=== PATIENT | female | born 1940 | race Caucasian/White ===

== ENCOUNTER 2023-05-11 05:01 | Observation (INO) ==
--- NOTE | 2023-04-12 15:54 | PAT Medication Instructions ---
Medication Instructions Date of Service April 12, 2023 Home Medications aspirin 81 mg capsule 81 mg PO Q2D biotin 5,000 mcg disintegrating tablet 5,000 mcg PO QAM calcium carbonate 500 mg-vitamin D3 3.125 mcg (125 unit) tablet 1 tab PO BID cholecalciferol (vitamin D3) 50 mcg (2,000 unit) capsule (Vitamin D3) 50 mcg PO QAM losartan 50 mg tablet 50 mg PO QPM omega-3 fatty acids 1,000 mg PO QAM Continue as directed aspirin 81 mg capsule 81 mg PO Q2D (continue as normal unless told otherwise by surgeon) STOP taking 2 weeks before surgery (or as soon as possible if surgery is within 2 weeks) biotin 5,000 mcg disintegrating tablet 5,000 mcg PO QAM omega-3 fatty acids 1,000 mg PO QAM DO NOT take the morning of surgery calcium carbonate 500 mg-vitamin D3 3.125 mcg (125 unit) tablet 1 tab PO BID cholecalciferol (vitamin D3) 50 mcg (2,000 unit) capsule (Vitamin D3) 50 mcg PO QAM Take evening before surgery calcium carbonate 500 mg-vitamin D3 3.125 mcg (125 unit) tablet 1 tab PO BID losartan 50 mg tablet 50 mg PO QPM Other Notes If you have any questions please call us at [phone] or [phone] or [phone] or [phone]
--- NOTE | 2023-04-13 14:31 | Anesthesiology Consultation ---
Date of Service April 13, 2023 Assessment & Plan (1) Encounter for pre-operative examination: - Infectious disease screening: Per assessment on 04/13: No known infectious disease contacts or current infectious disease symptoms. No noted Covid positive test result in past 90 days. - Outpatient joint assessment: Pt currently scheduled for inpatient pathway. If surgeon requests review for outpatient joint pathway, patient is not recommended candidate for outpatient joint program from anesthesia standpoint. - Anesthesia concern: Patient worried about postop memory impairment given her age- wants to limit use of medications known to have increased risk of memory impairment if/when possible. - Patient having routine labs done by PCP 04/14 (patient was not fasting at PAT visit 04/13 so she kept appt to have PCP labs the next day). Awaiting PCP labs to be done 04/14 (Dr. Hope). Chart Review Chart Review: Patient seen in Pre Admission Testing Teaching & Discussion Pre-Anesthesia Teaching/Discussion Notes: Instructed NPO after midnight before surgery,except medications with 15 cc of water. Medication instructions provided according to the [facility] guidelines. p History Surgery Operation Date: 05/11/23 12:30 Proposed Procedures p Right Total Hip Arthroplasty - Jaren Smiley MD Height/Weight Height: 5 ft 2 in Weight: 85 kg Allergies Allergy/AdvReac Type Severity Reaction Status Date / Time tetracycline AdvReac Severe Intestinal Verified 04/13/23 08:42 bleeding Medications Home Medications Medication Instructions Recorded Confirmed Last Taken aspirin 81 mg capsule 81 mg PO Q2D 10/20/21 04/12/23 11/10/21 biotin 5,000 mcg disintegrating 5,000 mcg PO QAM 10/20/21 04/12/23 11/10/21 tablet calcium carbonate 500 mg-vitamin 1 tab PO BID 10/20/21 04/12/23 11/10/21 D3 3.125 mcg (125 unit) tablet cholecalciferol (vitamin D3) 50 50 mcg PO QAM 10/20/21 04/12/23 11/10/21 mcg (2,000 unit) capsule (Vitamin D3) losartan 50 mg tablet 25 mg PO BID 10/20/21 04/13/23 11/10/21 omega-3 fatty acids 1,000 mg PO QAM 10/20/21 04/12/23 11/10/21 amlodipine 2.5 mg tablet 2.5 mg PO DAILY 04/13/23 04/13/23 Unknown Past Medical History Medical History Arthralgia of right hip Arthritis Bursitis Hips Dry eye syndrome History of COVID-19 2021, "mild" History of kidney stones No surgical interventions History of shingles Remote hx Hx of paranoid disorder Hx of thyroid disease No longer on meds Hypertension Exercise / Class Metabolic Activity III < 4 Walking/Shop/Light housework Past Family History Family History Son Family history of diabetes mellitus Other No family history of adverse response to anesthesia Past Surgical History Surgical History H/O ovarian cystectomy History of cataract surgery R/L History of colonoscopy History of hysterectomy [place] teeth removed Past Anesthesia History No Hx of Anesthesia Complications and No Family Hx of Anesthesia Complications History of PONV No Hx of PONV and Hx of Motion Sickness (Occasional) Social History Smoking Status: Never smoker Do You Dip or Chew Tobacco: No Hx Alcohol Use: Yes alcohol intake frequency: holidays/special occasions only Hx Substance Use: No substance use type: does not use Review of Systems Patient denies chest pain, shortness of breath, fever, chills, cough, wheezing, palpitations. Physical Exam Vital Signs VITALS BP 115/70 P 65 TEMP 99.0 SP02 95%RA RESP 16 PHYSICAL Full cervical extension range of motion. Full TMJ range of motion. TMD 3 finger breaths Mallampati Score 2 Dentition: upper front chipped (hx repairs) Lungs: clear throughout to auscultation Cardiac: regular rate and rhythm, no murmurs noted Spine: normal Carotid arteries: negative bruit Extremities: no LE edema Lab Results Anesthesia Preop Results Results Anesthesia Widget: WBC 9.21 K/ul (4.8-10.8) 04/13/23 Hgb 14.0 g/dl (12.0-16.0) 04/13/23 Hct 41.9 % (37.0-47.0) 04/13/23 Plt 396 K/uL (130-400) 04/13/23 PT 10.8 Seconds (9.0-12.0) 04/13/23 PTT 29.0 Seconds (21.0-31.0) 04/13/23 INR 1.0 (0.9-1.1) 04/13/23 Blood Type O Positive 04/13/23 Antibody Screen NEGATIVE 04/13/23 Testing Electrocardiogram Date: 04/13/23 NSR at 66bpm. LAD. LVH with repolarization abnormality. Chest X-Ray Date: 11/11/22 FINDINGS: The cardiac silhouette is borderline enlarged. Calcified granulomas again noted within the left lower lobe and right midlung zone. No new focal lung consolidations to suggest a pneumonia. No evidence for pulmonary edema. There are calcified AP window lymph nodes again noted. No pneumothorax. No pleural effusions. IMPRESSION: Borderline cardiomegaly. Otherwise, no acute process within the chest.
[2023-05-11 05:53] LABS: Hematocrit (blood only) 45.5 % (37.0-47.0); Hemoglobin 15.2 g/dl (12.0-16.0); Mean Corpuscular Hgb Conc 33.4 g/dL (32.0-36.0); Mean Corpuscular Volume 92.7 fL (80.0-100.0); Platelet Count 399 K/uL (130-400); RDW Coefficient of Variation 13.4 % (11.5-14.5); RDW Standard Deviation 45.6 fL (36.4-46.3); Red Blood Count 4.91 M/uL (4.20-5.40); White Blood Count 11.09 K/ul (4.8-10.8)
[2023-05-11] MEDS ORDERED: ceFAZolin 2000MG 2,000 MG/15 ML SYR IV SCH (06:00)
[2023-05-11] MEDS ORDERED: METOCLOPRAMIDE HCL 10 MG TABLET PO SCH (06:00)
[2023-05-11] MEDS ORDERED: CeleBREX 200 MG CAP PO SCH (06:00)
[2023-05-11] MEDS ORDERED: LR 500ML BOLUS, THEN 15ML/HR IV SCH (06:00)
[2023-05-11] MEDS ORDERED: dexAMETHasone**PF** 10 MG/ML VIAL IV SCH (06:00)
[2023-05-11] MEDS ORDERED: FAMOTIDINE 20 MG TAB PO SCH (06:00)
[2023-05-11] MEDS ORDERED: LR 60ML/HR IV SCH (06:00)
[2023-05-11] MEDS ORDERED: TRANEXAMIC ACID 1,000 MG **IV Pre-op IV SCH (06:00)
[2023-05-11] MEDS ORDERED: ACETAMINOPHEN 500 MG TAB PO SCH (06:00)
[2023-05-11] MEDS ORDERED: BUPIVACAINE 0.5 % 5 MG/1 ML PF 10ML VIAL ONE (06:20)
[2023-05-11] MEDS ORDERED: BUPIVACAINE/EPINEPHRINE 0.5% MPF 1:200,000 30 ML VIAL ONE (06:35)
[2023-05-11] MEDS ORDERED: MIDAZOLAM HCL 1 MG/ML 2ML VIAL ONE (06:42)
--- NOTE | 2023-05-11 06:52 | History & Physical Bridge Note ---
Date of Service May 11, 2023 History & Physical Bridge Note I have examined the patient, reviewed the History & Physical and in the interval since the performance of the History & Physical I have noted the following changes of clinical significance: no changes noted
[2023-05-11] MEDS ORDERED: ONDANSETRON INJ 2 MG/ML 2 ML VIAL IV PRN ×2 (07:06→11:48)
[2023-05-11] MEDS ORDERED: ATROPINE SULFATE 0.1 MG/ML 10ML SYR IV PRN (07:06)
[2023-05-11] MEDS ORDERED: ePHEDrine sulfate 50 MG/ML AMP IV PRN (07:06)
[2023-05-11] MEDS ORDERED: PROPOFOL IV EMULSION 10 MG/ML 20 ML VIAL IV ONE ×3 (07:23→08:29)
[2023-05-11] MEDS ORDERED: PHENYLEPHRINE 100MCG/ML 5ML SYR ONE (07:27)
[2023-05-11] MEDS ORDERED: ePHEDrine sulfate 50 MG/5 ML SYR ONE (07:27)
--- NOTE | 2023-05-11 09:16 | Operative Report ---
PG Post Operative Report Pre & Post Diagnosis Operation Date: 05/11/23 07:00 Pre-Op Diagnosis: Right Hip Degenerative Joint Disease Post-Op Diagnosis: #1 right Hip Degenerative Joint Disease #2 Right chronic hip abductor avulsion I identified the patient and participated in the time-out.: Yes Procedure Operation Date: 05/11/23 07:00 Actual Procedures p Right Total Hip Arthroplasty, Cemented(Right) with right hip abductor repair- Jaren Smiley MD Surgeon Jaren Smiley MD Crab Fisherman Javon Bynum PA-C Estimated Blood Loss 150 Findings Consistent with Post-Op Diagnosis Operative findings show advanced right hip DJD. She had grade 4 [id number] disease of the femoral head and acetabulum. She had chronic hip abductor avulsion. Moderate-sized joint effusion. Specimens Right femoral head sent for pathology Anesthesia Type Spinal MAC Complications none Disposition Accompanied Patient To Recovery: No Indications Patient is an 83-year-old female who said about a year history of a markedly increasing right hip pain discomfort. She failed conservative measures. She has trouble getting around. X-rays show progressive hip arthritis. She like proceed with surgical management. Description of Procedure Operative implants consist of: 1 Biomet G7 size 50 mm acetabular shell. 2. [place] eliminator. 3. 6.5 cancellous acetabular screws 1 at 35 mm length 1 to 20 mm length. 4. Highly cross-linked polyethylene liner with a 50 mm outer diameter and 36 mm inner diameter. 5. DePuy [place] cemented size 3 high offset femoral stem. 6. +5/36 mm ceramic articular ball. 7. Biomet juggernaut suture anchor. The patient was taken the operating, identified, placed on the operating table supine position architectures were properly padded. IV antibiotics were provided by the anesthesia team. A spinal anesthetic had been implemented holding area. Paz cath was placed in sterile fashion. The patient then placed in the left lateral decubitus position. An axillary roll was placed. Stulberg hip positioner was used for positioning. The right hip and leg were then prepped and draped in usual sterile fashion. A posterolateral approach to the right hip was then performed to a curvilinear incision centered over the greater trochanter. Sharp dissection carried through subcutaneous tissue down to the IT band gluteal fascia. The IT band gluteal fascia incised longitudinally in line with skin incision. The underlying greater bursa was excised. The greater trochanter was essentially bald superiorly and posteriorly and for the majority anteriorly. The piriformis and external rotators were tagged and taken off the posterior aspect of the hip of the joint along with the joint capsule as a single layer. Hip was internally rotated and dislocated. Femoral neck osteotomy cut was made with Final Cut 12 mm above the lesser trochanter. Femoral head was removed and sent for pathology. The femur was retracted anteriorly. Attention drawn the acetabulum. The acetabular labrum was excised. I then reamed beginning with size 43 and progressing up to a 49. I reamed a little bit with a 50 reamer and then placed a 50 mm Biomet G7 acetabular shell in about 40 degrees lateral opening and 20 degrees of anteversion. It was fixed with two 6.5 cancellous screws. Some small osteophytes removed anteriorly and inferiorly. Trial liner was placed. Attention drawn the femur. The proximal femur was entered with cookie-cutter followed by canal finder and lateralizing reamer. I then broached beginning with size 1 and progressing to a 2. Even this too was fairly tight. We elected to stop there. I trialed the hip and the +5 articular ball with a high offset stem was fit appropriately. I did want to maximize her stability considering her Hip abductor deficiency. We elect to place a size 3 high offset implant. I do not feel like to broach any further. All trial implants were removed. An apex hole limiter was placed. Highly cross-linked polyethylene liner was placed. A double batch [place] G cement was mixed. A cement restrictor was placed at the base of the canal about 14 cm down. The canal was injected with the cement and a size 3 high offset DePuy [place] femoral stem was placed. Once the cement hardened the final cement check was then performed. A +5/36 mm ceramic articular ball was placed. Hip was located once again found to be stable. Attention drawn toward closing. The wound was irrigated coconuts pulsatile lavage solution. I did inject locally with 60 cc of half percent Marcaine with epinephrine. The posterior capsule and external rotators were repaired through drill holes as a single layer with #2 Tycron suture. I then scuffed up the greater trochanter. I placed a single juggernaut anchor in the mid to anterior portion of the trochanter. I then fed the 2 sutures through the remaining hip abductors which were avulsed primarily superiorly and anteriorly. I placed 1 set of sutures an terior one superior. These were tied down the trochanter. The IT band gluteal fascia then closed in 1 PDS suture in a running fashion for subcutaneous tissues then closed with 2 layers the deep layer #2 Vicryl suture and subcutaneous tissue with 2-0 Dexon suture in buried interrupted fashion. Skin was closed skin luis. Leg was then cleaned and dried. A Prevena VAC dressing was applied due to the very thick soft tissue envelope. The patient was then transferred to the recovery room in stable condition. Patient tolerated procedure well and there are no complications. Javon Bynum, my physician certified ophthalmic surgical assistant, was present for the entire procedure. His assistance was essential and required for appropriate patient positioning, prepping and draping, surgical exposure, performing the technical details of the operation, placement the implants, closure of the wound, and placement of the sterile bandage. I attest to the content of the Intraoperative Record and any orders documented therein. Any exceptions are noted below.
[2023-05-11] MEDS: fentaNYL citrate PF 100 MCG/2 ML VIAL IV PRN ×2 (09:48→09:55)
--- NOTE | 2023-05-11 09:52 | XRay Report ---
AP PELVIS, CROSSTABLE LATERAL RIGHT HIP History: Right total hip arthroplasty. Degenerative arthritis. Postop. FINDINGS: The patient is status post a right total hip arthroplasty. The hardware is intact. No fract ure or dislocation. Skin luis are in place. IMPRESSION: Right total hip arthroplasty. No evidence for hardware complication ACT 112: Negative or not required by law. Electronically signed by: Kyle Berg M.D. 05/11/2023 9:50 AM
--- NOTE | 2023-05-11 11:03 | Anesthesiology Progress Note ---
Date of Service May 11, 2023 Anesthesia Post Procedure Vital Signs Vital Signs: Temp Pulse Pulse Resp BP Pulse Ox O2 Del Method 05/11/23 10:55 60 15 115/58 L 98 Nasal Cannula 05/11/23 10:40 64 15 112/50 L 97 Nasal Cannula 05/11/23 10:25 62 17 111/55 L 95 Nasal Cannula 05/11/23 10:10 60 15 112/58 L 95 Nasal Cannula 05/11/23 09:55 65 12 105/70 92 Nasal Cannula 05/11/23 09:45 60 19 107/47 L 94 Room Air 05/11/23 09:35 36.1 C L 66 18 105/53 L 94 Room Air 05/11/23 09:25 70 20 101/49 L 94 Oxymask 05/11/23 09:15 72 22 106/52 L 93 Oxymask 05/11/23 09:07 36.0 C L 71 14 88/42 L 92 Oxymask 05/11/23 05:33 36.8 C 68 20 184/69 H 95 Room Air O2 Flow Rate 05/11/23 10:55 2 05/11/23 10:40 2 05/11/23 10:25 2 05/11/23 10:10 2 05/11/23 09:55 2 05/11/23 09:45 05/11/23 09:35 05/11/23 09:25 4 05/11/23 09:15 9 05/11/23 09:07 9 05/11/23 05:33 Pain Intensity Right Hip: Pain Intensity: 4 Transfer of Care Handoff Completed per policy Notes Mental Status: alert / awake / arousable and participated in evaluation Nausea / Vomiting: adequately controlled Pain: adequately controlled Airway Patency, RR, SpO2: stable & adequate BP & HR: stable & adequate Hydration State: stable & adequate Neuraxial Anesthesia: was administered and sensory block is resolving Anesthetic Complications: no major complications apparent and Pt Satisfied with anesthetic care
[2023-05-11] MEDS ORDERED: HYDROmorphone INJ 0.5 MG/0.5 ML SYR IV PRN (11:48)
[2023-05-11] MEDS ORDERED: bisacodyL 10 MG SUPP PR PRN (11:48)
[2023-05-11] MEDS ORDERED: MAGNESIUM HYDROXIDE SUSP 30 ML UDC PO PRN (11:48)
[2023-05-11] MEDS ORDERED: NALOXONE HCL 0.4 MG/1 ML VIAL/CARP IV PRN (11:48)
[2023-05-11] MEDS ORDERED: METOCLOPRAMIDE HCL INJ 5 MG/ML 2 ML VIAL IV PRN (11:48)
[2023-05-11] MEDS ORDERED: ALUMINUM/MAGNESIUM SUSP 30 ML UDC PO PRN (11:48)
[2023-05-11] MEDS ORDERED: traMADol HCL 50 MG TABLET PO PRN (11:48)
[2023-05-11] MEDS: SODIUM CHLORIDE 0.9% 1,000 ML IV SCH ×2 (12:13→22:33)
[2023-05-11] MEDS: KETOROLAC TROMETHAMINE 15 MG/ML VIAL IV SCH ×3 (12:38→23:10)
[2023-05-11] MEDS: ACETAMINOPHEN 500 MG TAB PO SCH ×2 (13:34→20:50)
[2023-05-11] MEDS: ceFAZolin 2000MG 2,000 MG/15 ML SYR IV SCH ×2 (14:59→23:09)
[2023-05-11] MEDS ORDERED: TRANEXAMIC ACID / 0.7% NACL 1,000 MG/100 ML BAG IV SCH (15:15)
[2023-05-11] MEDS: ASCORBIC ACID 500 MG TAB PO SCH (17:25)
[2023-05-11] MEDS: ASPIRIN 81 MG ECTAB PO SCH (20:51)
[2023-05-11] MEDS: CALCIUM 600MG + VIT D 400 IU TAB PO SCH (20:51)
[2023-05-11] MEDS: DOCUSATE SODIUM 100 MG CAP PO SCH (20:51)
[2023-05-11] MEDS: LOSARTAN POTASSIUM 25 MG TAB PO SCH (20:52)
[2023-05-11] MEDS ORDERED: SENNA 8.6 MG TAB PO SCH ×2 (21:00)
[2023-05-12] MEDS: KETOROLAC TROMETHAMINE 15 MG/ML VIAL IV SCH ×2 (06:10→11:42)
[2023-05-12] MEDS ORDERED: dexAMETHasone 4 MG TAB PO SCH (08:00)
[2023-05-12] MEDS: ASCORBIC ACID 500 MG TAB PO SCH (08:07)
[2023-05-12] MEDS: CALCIUM 600MG + VIT D 400 IU TAB PO SCH (08:07)
[2023-05-12] MEDS: LOSARTAN POTASSIUM 25 MG TAB PO SCH (08:08)
[2023-05-12] MEDS: ACETAMINOPHEN 500 MG TAB PO SCH (08:09)
[2023-05-12] MEDS: DOCUSATE SODIUM 100 MG CAP PO SCH (08:09)
[2023-05-12] MEDS: ASPIRIN 81 MG ECTAB PO SCH (08:09)
[2023-05-12 08:12] LABS: Basophils # (auto) 0.02 K/uL (0.00-0.20); Basophils % (auto) 0.1 %; Hematocrit (blood only) 35.7 % (37.0-47.0); Hemoglobin 12.1 g/dl (12.0-16.0); Immature Granulocytes # (auto) 0.08 K/uL (0.01-0.20); Immature Granulocytes % (auto) 0.5 %; Lymphocytes # (auto) 1.36 K/uL (1.20-3.40); Lymphocytes % (auto) 8.3 %; Mean Corpuscular Hemoglobin 30.6 pg (25.0-34.0); Mean Corpuscular Hgb Conc 33.9 g/dL (32.0-36.0); Mean Corpuscular Volume 90.4 fL (80.0-100.0); Mean Platelet Volume 10.5 fL (9.4-12.4); Monocytes # (auto) 0.87 K/uL (0.11-0.59); Monocytes % (auto) 5.3 %; Neutrophils # (auto) 14.04 K/uL (1.40-6.50); Neutrophils % (auto) 85.8 %; Platelet Count 336 K/uL (130-400); RDW Coefficient of Variation 13.4 % (11.5-14.5); RDW Standard Deviation 44.3 fL (36.4-46.3); Red Blood Count 3.95 M/uL (4.20-5.40); White Blood Count 16.37 K/ul (4.8-10.8)
[2023-05-12 08:17] LABS: BUN Creatinine Ratio 26.2 (10-20); Calcium 8.9 mg/dl (8.6-10.3); Creatinine Clr Calc Pharmacy 65.9 ml/min; Est GFR (African American) 95.2 ml/min; Est GFR (Non-African American) 82.1 ml/min; Potassium 4.5 mmol/L (3.5-5.1)
[2023-05-12] MEDS ORDERED: OMEGA-3 (PURIFIED FISH OIL) 1 GM CAP PO SCH (09:00)
[2023-05-12] MEDS ORDERED: NON-FORMULARY MEDICATION (Biotin 5,000 mcg Tablet,Disintegrating) PO SCH (09:00)
[2023-05-12] MEDS ORDERED: amLODIPine BESYLATE 5 MG TAB PO SCH (09:00)
[2023-05-12] MEDS ORDERED: MULTIVITAMIN TAB PO SCH (09:00)
[2023-05-12] MEDS ORDERED: CHOLECALCIFEROL 1,000 UNITS 25 MCG TAB PO SCH (09:00)
--- NOTE | 2023-05-12 13:08 | Surgery Progress Note ---
Date of Service May 12, 2023 Assessment & Plan (1) Status post right hip replacement: Plan: 83-year-old female postop day 1 from a hybrid total hip replacement doing quite well. Pain is controlled. She is neurologically intact. Hips located. Therapy went well. Plan: 1 DVT prophylaxis including thigh-high teds, SCDs, aspirin twice a day. 2. PT OT. Weight-bear as tolerated. Right total hip protocol. 3. Pain control doing okay with current pain regimen. Not really having much pain. 4. Disposition plan to discharge home with some home health and her family's assistance. Admission and Anticipated Discharge Date Admission Date: May 11, 2023 Subjective 83-year-old female postop day 1 from a right hybrid total hip replacement. She is doing quite well. Pain is controlled. Therapy went well. She is hoping to go home. Physical Exam Physical Exam: Physical exam shows a pleasant elderly female. She is sitting up in her bedside chair and talking to family. She looks quite comfortable. Examination of the right hip reveals a Prevena VAC dressing to be in place. Her thigh is soft and supple. Leg lengths are equal. She is neurologically intact. Results & Data Vital Signs (Past 12 Hours) Vital Signs Temp Pulse Resp BP Pulse Ox O2 Del Method 05/12/23 08:34 36.5 C 62 18 120/61 97 Room Air 05/12/23 03:46 36.4 C L 52 L 16 126/60 94 Room Air Laboratory Results Hemoglobin is 12.1. Hematocrit is 35.7. Electrolytes are stable. PG Care Time/CCT Total # of Minutes Spent Total Time Spent with Patient: Total time spent is greater than 50% in coordination of care (as documented) at patient's floor/unit and/or counseling patient: Coding Level of Care Code 53127 Post Operative Follow-Up Diagnoses Status post right hip replacement Z96.641
--- NOTE | 2023-05-16 14:26 | Discharge Summary ---
Date of Service May 16, 2023 Discharge Data Procedures Performed Operation Date: 05/11/23 07:00 Actual Procedures p Right Total Hip Arthroplasty, Cemented(Right) - Jaren Smiley MD Hospital Course (1) Status post right hip replacement: This is a 83 year old patient admitted on 05/11/23 and underwent total hip arthroplasty. She tolerated the procedure well and there were no complications. Transferred to the PACU post op and later to the orthopedic floor for further care. She was given ancef for antibiotic prophylaxis. She was also given JM stockings, SCDs, and aspirin for DVT prophylaxis. Hemoglobin, hematocrit, and vital signs were monitored during her hospital stay and remained stable. Did not require any blood transfusions. There were no complications during her hospital stay. By post op day #1 the patient was tolerating a regular diet, pain was reasonably controlled with oral pain medicine, and she was participating in physical therapy. On post op day #1 the patient was discharged home and set up with home health care. She was given printed discharge instructions including prescriptions for extra strength tylenol, aspirin, ketorolac, zofran, senokot, and tramadol. Continue hip precautions. Continue physical therapy, weight bearing as tolerated. Continue JM stockings. Follow up approximately 2 weeks post op or sooner if there are problems or concerns. Coding Level of Care Code None Diagnoses Status post right hip replacement Z96.641
== END 2023-05-12 14:13 | disposition home health service (06) ==
LOC: 3W 05:01 → ASU 05:01

== ENCOUNTER 2024-10-20 13:15 | Inpatient (IN) ==
--- NOTE | 2024-10-20 22:41 | History & Physical Report ---
Date of Service October 20, 2024 Assessment & Plan (1) Plasma cell neoplasm: (2) Ambulatory dysfunction: (3) Essential hypertension: Plan Pt is an 84 yo female with a past med hx of HTN, peripheral vascular disease, osteopenia, carotid artery stenosis, hearing loss and depression who presents on 10/20 for direct admission from [facility] for further care of recent dx of plasmacytoma. #Plasmacytoma - transferred to [facility] 10/13-10/20 for eval of L leg bone lesion, biopsied and found to be plasma cell neoplasm - [facility] oncology recommend PET/CT and bone marrow biopsy for eval of multiple myeloma - pt transferred back to [place] as she lives locally and would like to continue her care here near family - oncology consulted - tylenol daron for pain with oxycodone prn #Ambulatory dysfunction - due to painful lytic lesion of L leg making it difficult to bear weight on that leg - PT/OT consulted #HTN - continue home olmesartan 5mg (or formulary equivalent) #Anxiety - hydroxyzine 25 mg prn (same as what she was getting in [place]) VTE: lovenox Admission and Anticipated Discharge Date Admission Date: October 20, 2024 History of Present Illness Chief Complaint: Plasmacytoma Primary Care Provider: James Hope Pt is an 84 yo female with a past med hx of HTN, peripheral vascular disease, osteopenia, carotid artery stenosis, hearing loss and depression who presents on 10/20 for direct admission from [facility] for further care of recent dx of p lasmacytoma. Pt seen at bedside. She states she is feeling well. She denies chest pain, SOB, nausea, vomiting, abdominal pain. She states that her only source of pain is her L leg where the cancer is and states it is excruciating to walk on or bear any weight on. She ate dinner prior to arrival here without issue. She states she was getting tylenol and oxycodone for pain which did work well for her. No questions or concerns at this time. Allergies Allergy/AdvReac Type Severity Reaction Status Date / Time tetracycline AdvReac Severe Intestinal Verified 10/13/24 10:49 bleeding Home Medications Medication Instructions Recorded Confirmed Type calcium 500 mg (as 1 tab PO BID 10/20/21 10/20/24 History carbonate)-vitamin D3 3.125 mcg (125 unit) tablet olmesartan 5 mg tablet 5 mg PO BID 06/15/24 10/20/24 History acetaminophen 500 mg tablet 1,000 mg PO TID PRN pain 10/13/24 10/20/24 History (Tylenol Extra Strength) omega 3 350 mg-dha 235 mg-epa 90 1 cap PO QAM 10/13/24 10/20/24 History mg-fish oil 597 mg capsule,delay rel (Ada-3) aspirin 81 mg tablet 81 mg PO DAILY 10/20/24 10/20/24 History cholecalciferol (vitamin D3) See Rx Instructions .Route .COMPLEX 10/20/24 10/20/24 History Past Med/Surg History Problem List (Updated 10/20/24 @ 22:52 by Shakira Cordero, DO) Plasma cell neoplasm Closed fracture of tibial plateau (Acute) Osteolytic lesion (Acute) Major depressive disorder, recurrent Essential hypertension Left knee pain (Acute) Ambulatory dysfunction Status post right hip replacement Diarrhea (Acute) Arthralgia of right hip Medical History History of shingles History of COVID-19 Encounter for pre-operative examination Bursitis Arthritis History of kidney stones Hx of thyroid disease Hx of paranoid disorder Dry eye syndrome Hypertension Surgical History History of cataract surgery H/O ovarian cystectomy History of colonoscopy History of hysterectomy [place] teeth removed Family History Son Family history of diabetes mellitus Other No family history of adverse response to anesthesia Social History Smoking Status: Never smoker Tobacco Type: Declines Second Hand Exposure: No; Do You Dip or Chew Tobacco: No; Tobacco Cessation Education Requested by Patient: No Hx Alcohol Use: Yes Alcohol type: beer, wine and hard liquor Hx Substance Use: No Preferred Language: Algerian Communication Ability: Effective Curtain Cutter Required: No Beliefs That Will Affect Care: None Current Living Situation: Alone Other Information That Helps Us Care for You: No Feels Safe at Home: Yes Safety Concerns: Feels Safe At This Time Assistive Devices: Cane and Walker Review of Systems Review of Systems: Per HPI. Physical Exam Physical Exam: General: Alert and oriented, no acute distress, frail appearing HEENT: Normocephalic, moist oral mucosa, Cardio: Regular rate and rhythm, Resp: Lungs clear to auscultation b/l, no wheezes or rhonchi, GI: Soft and nontender Skin: Warm, dry, pale Results & Data Results & Data Vital Signs (Past 12 Hours) Vital Signs Temp Pulse Resp BP Pulse Ox O2 Del Method 10/20/24 22:00 36.5 C 63 18 148/78 H 96 Room Air Supervising Physician Co-Signing Physician Notes Patient seen and examined, chart reviewed, case discussed with Dr. Cordero and I agree with the assessment and plan as above. Patient returns from [facility]. Need for coordinated care - PT/OT, Case Management for placement as well as Radiation Oncology Resident Activity Tracking Resident Involvement: Resident Care Provided Care Provided: [facility]
[2024-10-20] MEDS ORDERED: POLYETHYLENE (MIRALAX) 17 GM PACK PO PRN (22:54)
[2024-10-20] MEDS ORDERED: ONDANSETRON INJ 2 MG/ML 2 ML VIAL IV PRN (22:54)
[2024-10-20] MEDS: ACETAMINOPHEN 500 MG TAB PO SCH (23:50)
[2024-10-20] MEDS: ENOXAPARIN INJ 40 MG/0.4 ML SYR SQ SCH (23:51)
[2024-10-21 06:58] LABS: Basophils # (auto) 0.04 K/uL (0.00-0.20); Basophils % (auto) 0.5 %; Eosinophils # (auto) 0.17 K/uL (0.00-0.50); Hematocrit (blood only) 38.4 % (37.0-47.0); Hemoglobin 12.9 g/dl (12.0-16.0); Immature Granulocytes # (auto) 0.03 K/uL (0.01-0.20); Immature Granulocytes % (auto) 0.4 %; Lymphocytes # (auto) 2.12 K/uL (1.20-3.40); Lymphocytes % (auto) 25.3 %; Mean Corpuscular Hemoglobin 30.4 pg (25.0-34.0); Mean Corpuscular Hgb Conc 33.6 g/dL (32.0-36.0); Mean Corpuscular Volume 90.4 fL (80.0-100.0); Mean Platelet Volume 9.7 fL (9.4-12.4); Monocytes # (auto) 0.79 K/uL (0.11-0.59); Monocytes % (auto) 9.4 %; Neutrophils # (auto) 5.22 K/uL (1.40-6.50); Neutrophils % (auto) 62.4 %; Platelet Count 317 K/uL (130-400); RDW Coefficient of Variation 13.6 % (11.5-14.5); RDW Standard Deviation 45.2 fL (36.4-46.3); Red Blood Count 4.25 M/uL (4.20-5.40); White Blood Count 8.37 K/ul (4.8-10.8)
[2024-10-21 07:29] LABS: BUN Creatinine Ratio 27.3 (10-20); Calcium 8.7 mg/dl (8.6-10.3); Creatinine Clr Calc Pharmacy 96.3 ml/min; Potassium 4.2 mmol/L (3.5-5.1)
[2024-10-21 07:44] LABS: Thyroid Stimulating Hormone 3.651 uIu/ml (0.300-4.500)
[2024-10-21] MEDS: LOSARTAN POTASSIUM 25 MG TAB PO SCH (08:05)
--- NOTE | 2024-10-21 09:47 | Oncology Consultation ---
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 She does not have anemia, renal insufficiency or hypercalcemia to suggest multiple myeloma. - Unclear if this is solitary plasmacytoma but patient states that CT CAP at [facility] was negative for any other lesions except for thyroid nodule.Regardless of whether this is solitary or not, she would benefit from radiation therapy and so would recommend evaluation by radiation oncology. -Recommend labs including SPEP with MAURA, serum free light chains or quantitative immunoglobulins. Also recommend bone marrow biopsy with IR. Will plan to obtain whole body PET/CT on discharge. - History of Present Illness Reason for Consultation: Left lower extremity plasmacytoma Attending Physician: Tariq Johnson DO History of Present Illness 84 year old female recently diagnosed at [facility] with biopsy proven left proximal tibia plasmacytoma. Patient was transferred to [facility] for continued workup and treatment as she wanted to be closer to home. Allergies Allergy/AdvReac Type Severity Reaction Status Date / Time tetracycline AdvReac Severe Intestinal Verified 10/13/24 10:49 bleeding Home Medications Medication Instructions Recorded Confirmed Type calcium 500 mg (as 1 tab PO BID 10/20/21 10/20/24 History carbonate)-vitamin D3 3.125 mcg (125 unit) tablet olmesartan 5 mg tablet 5 mg PO BID 06/15/24 10/20/24 History acetaminophen 500 mg tablet 1,000 mg PO TID PRN pain 10/13/24 10/20/24 History (Tylenol Extra Strength) omega 3 350 mg-dha 235 mg-epa 90 1 cap PO QAM 10/13/24 10/20/24 History mg-fish oil 597 mg capsule,delay rel ([place]-3) aspirin 81 mg tablet 81 mg PO DAILY 10/20/24 10/20/24 History cholecalciferol (vitamin D3) See Rx Instructions .Route .COMPLEX 10/20/24 10/20/24 History Patient History Medical History History of shingles History of COVID-19 Encounter for pre-operative examination Bursitis Arthritis History of kidney stones Hx of thyroid disease Hx of paranoid disorder Dry eye syndrome Hypertension Surgical History History of cataract surgery H/O ovarian cystectomy History of colonoscopy History of hysterectomy [place] teeth removed Family History Son Family history of diabetes mellitus Other No family history of adverse response to anesthesia Social History Smoking Status: Never smoker Tobacco Type: Declines Second Hand Exposure: No; Do You Dip or Chew Tobacco: No; Tobacco Cessation Education Requested by Patient: No Hx Alcohol Use: Yes Alcohol type: beer, wine and hard liquor Hx Substance Use: No Preferred Language: Yi Communication Ability: Effective Accounting Advisory Services Manager Required: No Beliefs That Will Affect Care: None Current Living Situation: Alone Other Information That Helps Us Care for You: No Feels Safe at Home: Yes Safety Concerns: Feels Safe At This Time Assistive Devices: Bedside Commode, Hearing Aid - Bilateral and Walker Results & Data Vital Signs (Past 12 Hours) Vital Signs Temp Pulse Pulse Resp BP Pulse Ox O2 Del Method 10/21/24 08:09 36.6 C 60 16 122/72 93 Room Air 10/20/24 22:00 36.5 C 63 18 148/78 H 96 Room Air 10/20/24 22:00 36.5 C 63 18 148/78 H 96 Room Air
[2024-10-21 10:09] LABS: Immunoglobulin A 424.5 mg/dl (70-400); Immunoglobulin G 599.8 mg/dl (635-1741); Immunoglobulin M 50.7 mg/dl (45-281)
--- NOTE | 2024-10-21 10:27 | Hospitalist Progress Note ---
Date of Service October 21, 2024 Assessment & Plan (1) Plasma cell neoplasm: (2) Ambulatory dysfunction: (3) Essential hypertension: Plan Pt is an 84 yo female with a past med hx of HTN, peripheral vascular disease, osteopenia, carotid artery stenosis, hearing loss and depression who presents on 10/20 for direct admission from [facility] for further care of recent dx of plasmacytoma. #Plasmacytoma - transferred to [facility] 10/13-10/20 for eval of L leg bone lesion, biopsied and found to be plasma cell neoplasm - pt transferred back to [place] as she lives locally and would like to continue her care here near family - Oncology on board: Multiple myeloma less likely due to normal Cr and Hgb. Suggest IR guided BM biopsy. Will plan PET on DC. Recommend labs including SPEP with MAURA, serum free light chains or quantitative immunoglobulin; sent Recommend radiation oncology consult - Tylenol daron for pain with oxycodone prn #Ambulatory dysfunction - 2/2 L leg lesion: hard to bear weight - PT/OT awaited. Other - HTN: continue home olmesartan 5mg (or formulary equivalent) - Anxiety : hydroxyzine 25 mg prn (same as what she was getting in [place]) VTE: lovenox Code status: FUll Dispo: Likely Home on DC( pending OT/PT). Admission and Anticipated Discharge Date Admission Date: October 20, 2024 Supervising Physician Co-Signing Physician Notes I personally examined the patient and verified all martin points of history and exam, discussed case, and agree with decision making with Dr Poe knee pain. discussed dx and next steps. d/w radiation oncology - aware of situation, can't start XRT over weekend explained dx as best as possible vitals noted nad heent nc at mmm breathing unlabored no accessory muscles good effort skin no rashes no pallor or icterus plasmacytoma - await marrow bx. start xrt once possible. snf once able to be set up. otherwise as above Subjective Miss Adan was doing ok this morning. She was curious about further steps in her management and was in understanding biopsy would be done today. Mentioned that oncology team saw her just before. No new complains. Review of Systems Review of Systems: As per HPI Physical Exam Physical Exam: Constitutional: Well appearing, No acute distress. HEENT: Atraumatic, Normocephalic, No conjunctival injection CVS:Looks well perfused. Respiratory: No increased work of breathing GI: Nondistended MSK: No gross deformities noted Neuro: Alert, Oriented to TPP, No Focal deficit visible. Psych: Mood and Affect congruent, Cooperative on exam Results & Data Results & Data Vital Signs (Past 12 Hours) Vital Signs Temp Pulse Resp BP Pulse Ox O2 Del Method 10/21/24 08:09 36.6 C 60 16 122/72 93 Room Air
--- NOTE | 2024-10-21 17:35 | Billing Data ---
Date of Service October 21, 2024 Coding Level of Care Code 43872 SUB INP/OBS CARE
--- NOTE | 2024-10-21 17:35 | Billing Data ---
Date of Service October 21, 2024 Coding Level of Care Code 41244 SUB INP/OBS CARE
--- NOTE | 2024-10-21 21:05 | Billing Data ---
Date of Service October 20, 2024 Coding Level of Care Code 44944 INT INP/OBS CARE
--- NOTE | 2024-10-22 09:43 | Hospitalist Progress Note ---
Date of Service October 22, 2024 Assessment & Plan (1) Plasma cell neoplasm: (2) Ambulatory dysfunction: (3) Essential hypertension: Plan Pt is an 84 yo female with a past med hx of HTN, peripheral vascular disease, osteopenia, carotid artery stenosis, hearing loss and depression who presents on 10/[address] [facility] for further care of recent dx of plasmacytoma. #Plasmacytoma - transferred to [facility] 10/13-10/20 for eval of L leg bone lesion, biopsied and found to be plasma cell neoplasm - transferred back to [facility] - in d/w [place] physician they were having significant troubles coordinating SNF placement that would also allow for coordination with oncology care - and since pt's family here we discussed and it made far more sense for her to come back to [facility] for ongoing coordination of care and initiation of treatment (she's from [place], [facility] local, no one local to [place]) -radiation oncology to see tomorrow; heme/onc ordering bone marrow but also suspicious this may be isolated finding rather than systemic #Ambulatory dysfunction - due to painful lytic lesion of L leg making it difficult to bear weight on that leg - PT/OT, anticipate SNF. this was part of the main holdup that was preventing [facility] from being able to simply discharge her with ongoing care as outpt - in discussion with [place] physician, he noted their caseworker protective services could at best procure SNF bed in [place], and that this was also somehow a situation where the SNF would not be able to help her carry through with oncology treatment (which would then put her in the position of trying to rehab a knee that is problematic from a plasmacytoma that wouldn't be being treated until she got out of the SNF - which seemed circular and totally counter to advancing her care - therefore we accepted her back here) #HTN - continue home olmesartan 5mg (or formulary equivalent) #Anxiety - hydroxyzine 25 mg prn (same as what she was getting in [place]) VTE proph: lovenox dispo - back to [facility] from [facility] for coordination/initiation of oncology care. anticipate dispo to SNF when possible / once care coordinated Admission and Anticipated Discharge Date Admission Date: October 20, 2024 Subjective feeling about the same as far as knee pain. feeling a bit constipated. still having a hard time understanding dx - continuing to explain to pt and she seems to be slowly getting a better understanding dtr present at bedside, answered all questions to the best of my ability Review of Systems Review of Systems: All systems reviewed & are unremarkable except as noted in HPI & below Physical Exam Physical Exam: gen aaox3 pleasant, mildly anxious, nad. heent nc at mmm breathing unlabored no accessory muscles good effort. knee in immobilizer. skin without rashes pallor or icterus Results & Data Results & Data Vital Signs (Past 12 Hours) Vital Signs Temp Pulse Resp BP BP Pulse Ox O2 Del Method 10/22/24 07:45 97.6 F 67 16 158/72 H 97 Room Air 10/21/24 21:37 97.9 F 64 12 136/59 L 95 Room Air PG Care Time/CCT Total # of Minutes Spent Total Time Spent with Patient: Total time spent is greater than 50% in coordination of care (as documented) at patient's floor/unit and/or counseling patient: Coding Level of Care Code 55845 SUB INP/OBS CARE 2/35MIN Diagnoses Plasma cell neoplasm D49.89 Ambulatory dysfunction R26.2 Essential hypertension I10
[2024-10-22] MEDS: POLYETHYLENE (MIRALAX) 17 GM PACK PO SCH (14:04)
[2024-10-22] MEDS: oxyCODONE HCL IR 5 MG TAB (IMMEDIATE RELEASE) PO PRN (15:05)
--- NOTE | 2024-10-23 07:57 | Hospitalist Progress Note ---
Date of Service October 23, 2024 Assessment & Plan (1) Plasma cell neoplasm: (2) Ambulatory dysfunction: (3) Essential hypertension: Plan Pt is an 84 yo female with a past med hx of HTN, peripheral vascular disease, osteopenia, carotid artery stenosis, hearing loss and depression who presents on 10/20 for direct admission from [facility] for further care of recent dx of plasmacytoma. #Plasmacytoma - transferred to [facility] 10/13-10/20 for eval of L leg bone lesion, biopsied and found to be plasma cell neoplasm - pt transferred back to [place] as she lives locally and would like to continue her care here near family - Oncology on board: Multiple myeloma less likely due to normal Cr and Hgb. Tried BM biopsy today. She didn't tolerated well. Will plan tomorrow on sedation. Anesthesia consultation placed Will plan PET on DC. Lab results pending for SPEP with MAURA, serum free light chains or quantitative immunoglobulin. Appreciate radiation oncology consult - Tylenol daron for pain with oxycodone prn #Ambulatory dysfunction - 2/2 L leg lesion: hard to bear weight - Evaluated by PT/OT 0m 10/22: Patient would benefit from rehab placement before going to home Other - HTN: continue home olmesartan 5mg (or formulary equivalent) - Anxiety : hydroxyzine 25 mg prn (same as what she was getting in [place]) VTE: lovenox Code status: FUll Dispo: PT/OT recommended rehab before going to home. Admission and Anticipated Discharge Date Admission Date: October 20, 2024 Supervising Physician Co-Signing Physician Notes Attending attestation Pt seen and examined in concert with Dr. Poe. In agreement with the documented findings as noted in the resident documentation with any exceptions or additions as noted here. Well controlled pain of the LLE with exacerbation with position/movement resulting in intolerance of procedure today. On examination, S1/S2 nl RRR no MCG. CTAB. Abd NT/ND BS+ve Plasmacytoma of the LLE - oncology, rad-onc consult - pending biopsy with anesthesia tomorrow having failed today. Consultation appreciated. Continue pain control with APAP, oxycodone. Follow up send-out labs Ambulatory dysfunction in the setting of above - PT/OT - recommended rehab services. Case management aware. Else see resident documentation as noted. Subjective She mentions she slept well overnight. Was a bit constipated yesterday morning. But had her bowel movement yesterday. Rates knee pain as 4 out of 10. Review of Systems Review of Systems: As per HPI Physical Exam Constitutional: WD/WN, vitals as above Eyes: PERRL, conjunctivae normal, anicteric sclerae ENMT: Ears: no hearing impairment Neck: trachea midline, no thyromegaly Respiratory: normal respiratory effort, lungs clear to auscultation Cardiovascular: RRR, no murmur, no edema Musculoskeletal: Immobilizer in place on the left lower extremity. Skin: no rashes, warm and dry Psychiatric: A+Ox3, euthymic affect Lymphatic: no cervical or axillary lymphadenopathy Results & Data Results & Data Vital Signs (Past 12 Hours) Vital Signs Temp Pulse Resp BP Pulse Ox O2 Del Method 10/23/24 07:28 36.3 C L 68 16 137/79 97 Room Air 10/22/24 20:50 Room Air
[2024-10-23 08:21] LABS: Basophils # (auto) 0.03 K/uL (0.00-0.20); Basophils % (auto) 0.3 %; Eosinophils # (auto) 0.17 K/uL (0.00-0.50); Eosinophils % (auto) 1.9 %; Immature Granulocytes # (auto) 0.05 K/uL (0.01-0.20); Immature Granulocytes % (auto) 0.6 %; Lymphocytes % (auto) 25.1 %; Mean Corpuscular Hemoglobin 29.8 pg (25.0-34.0); Mean Corpuscular Hgb Conc 32.5 g/dL (32.0-36.0); Mean Corpuscular Volume 91.7 fL (80.0-100.0); Mean Platelet Volume 9.7 fL (9.4-12.4); Monocytes # (auto) 0.72 K/uL (0.11-0.59); Monocytes % (auto) 8.2 %; Neutrophils % (auto) 63.9 %; Platelet Count 346 K/uL (130-400); RDW Coefficient of Variation 13.7 % (11.5-14.5); RDW Standard Deviation 46.7 fL (36.4-46.3); Red Blood Count 4.36 M/uL (4.20-5.40); White Blood Count 8.77 K/ul (4.8-10.8)
[2024-10-23 08:36] LABS: Albumin Globulin Ratio 1.1 (0.9-2); Albumin Level 3.2 gm/dl (3.4-5.0); BUN Creatinine Ratio 26.8 (10-20); Bilirubin,Total 0.3 mg/dl (0.2-1.0); Calcium 8.3 mg/dl (8.6-10.3); Creatinine Clr Calc Pharmacy 75.7 ml/min; Potassium 4.3 mmol/L (3.5-5.1); Total Protein 6.2 gm/dl (6.0-8.3)
--- NOTE | 2024-10-23 08:38 | Radiation OncologyConsultation ---
Date of Consultation October 23, 2024 Assessment & Plan (1) Plasma cell neoplasm: Plan ATTENDING ADDENDUM Assessment: Ms. Arellano is an 84-year-old female who presents with a recent diagnosis of a solitary plasmacytoma of the left tibia. The patient's workup included evaluation at [facility] and the patient has been transferred back for further care and evaluation. The patient has been evaluated by Dr. Freeman from medical oncology who agrees with the assessment that the patient likely has a solitary plasmacytoma. The patient is symptomatic with some left knee pain. Recommendation: Definitive radiation therapy. 25 fractions. Treatment may start in the inpatient setting. Plan: 1. CT simulation for radiation therapy. Plan to start radiation therapy when plan completed. 2. Medical oncology will continue to follow the patient. Bone marrow biopsy still pending. 3. Continue all other management as per primary medical team. Rationale/Explanation of Treatment: I explained the indications, alternatives, benefits, risks and side effects of external beam radiation therapy. I then went on to discuss the acute and late side effects of radiation therapy which include, but are not limited to: skin erythema, dry/moist desquamation, pruritus, skin edema, skin necrosis, hyperpigmentation, telangiectasia, wound complications, lymphedema, pain, decreased range of motion, decreased range of motion and/or loss of function of extremity, bone fracture, pain, neuropathy, secondary malignancy. I then went on to discuss the procedures and scheduling of radiation therapy. History of Present Illness Reason for Consultation: Plasmacytoma left knee Requesting Physician: Ravindra Schultz MD Attending Physician: Ravindra Schultz MD History of Present Illness Patient again having issues with ambulation for year and a half ago. She has been walking with a walker or cane. There has been steady progression of pain in her left knee. 10/13/2024. Emergency room evaluation and admission due to left knee pain. 10/13/2024. Left knee x-ray. 1. Large lytic lesion of the proximal tibia redemonstrated which is similar to the 10/02/2024 comparison outpatient radiographs. New from prior is equivocal pathologic fracturing of the lateral tibial plateau. Correlation with CT recommended. 2. Osteoarthritis with chondrocalcinosis. 3. Small joint effusion. 10/13/2024. Left knee CT. 1. Large infiltrative osteolytic mass of the proximal tibia measures up to approximately 5 cm with soft tissue component extending through the cortex into the joint space. Plasmacytoma versus metastasis from unknown primary are the primary differential considerations. Oncologic workup is needed. 2. Pathologic fracturing of the proximal tibia and lateral tibial spine. 3. [id number] joint effusion with synovial thickening and intra- articular subcentimeter loose bodies. 4. Chondrocalcinosis with tricompartmental osteoarthritis. 10/14/2024. Transferred to [facility]. 10/14/2024. CT of the chest, abdomen and pelvis. 1. No definite primary malignancy or metastatic disease identified in the chest, abdomen or pelvis on noncontrast CT. 2. Right thyroid nodule measuring 1.5 cm. Recommend nonemergent thyroid ultrasound. 10/14/2024. X-ray of the left femur. 1. No femoral osseous lesion seen. 2. Partially visualized lytic lesion within the left tibia. 10/14/2024. X-ray of the left ankle. Large lytic mass within the proximal lateral tibia of unknown chronicity. Differentials include chondrosarcoma and giant cell tumor. 10/14/2024. MRI of the knee with contrast. 1. Marrow replacing lesion within the lateral aspect of the proximal tibial metaphysis extending to the subchondral bone. There is focal articular surface and cortical disruption as described and surrounding bone marrow edema. Primary differential considerations include metastatic disease, lymphoma and multiple myeloma/plasmacytoma given the patient's age. Primary bone tumor is a differential consideration; however, no mineralized matrix or characteristic imaging features are present. Tissue sampling is recommended. 2. Complex degenerative tear involving the body of the lateral meniscus with extension into the anterior and posterior horns. 3. Moderate knee joint effusion with synovitis. 4. Tricompartmental cartilage loss. 10/14/2024. Skeletal survey. 1. Redemonstration of osteolytic lesion in the left proximal tibia. Differential diagnosis includes multiple myeloma/plasmacytoma and metastasis, but cannot totally exclude primary bone tumor. 2. No additional osteolytic lesions identified. 10/16/2024. Cytology from FNA of the left knee. CD19-, OQ61-aoblyk chain restricted monotypic plasma cells consistent with plasma cell neoplasm 10/20/2024. She had been transferred to [place] on 10/13/2024 and then transferred back to [facility] on 10/20/2024. [facility] oncology has recommended PET/CT and bone marrow biopsy to evaluate for multiple myeloma. 10/21/2024. Medical oncology consultation (Dr. Freeman). Is unclear if this is a solitary plasmacytoma. Patient states she had a CT chest abdomen pelvis at [place] that was negative. She has a thyroid nodule. It was felt she would benefit from radiation therapy and radiation oncology consultation was recommended. Recommended SPEP with MAURA. Serum free light chains and quantitative immunoglobulins. Bone marrow biopsy by interventional radiology. PET/CT after discharge. 10/23/2024. Radiation oncology consultation. Patient has been diagnosed with plasmacytoma of the left knee. Transferred back to our facility from [place]. She continues to have pain in the knee. This is a constant level 4-5 out of 10. Pain was much higher when trying to bear weight. She is now avoiding bearing weight on the left leg. Allergies Allergy/AdvReac Type Severity Reaction Status Date / Time tetracycline AdvReac Severe Intestinal Verified 10/13/24 10:49 bleeding Home Medications Medication Instructions Recorded Confirmed Type calcium 500 mg (as 1 tab PO BID 10/20/21 10/20/24 History carbonate)-vitamin D3 3.125 mcg (125 unit) tablet olmesartan 5 mg tablet 5 mg PO BID 06/15/24 10/20/24 History acetaminophen 500 mg tablet 1,000 mg PO TID PRN pain 10/13/24 10/20/24 History (Tylenol Extra Strength) omega 3 350 mg-dha 235 mg-epa 90 1 cap PO QAM 10/13/24 10/20/24 History mg-fish oil 597 mg capsule,delay rel ([place]-3) aspirin 81 mg tablet 81 mg PO DAILY 10/20/24 10/20/24 History cholecalciferol (vitamin D3) See Rx Instructions .Route .COMPLEX 10/20/24 10/20/24 History Patient History Medical History History of shingles History of COVID-19 Encounter for pre-operative examination Bursitis Arthritis History of kidney stones Hx of thyroid disease Hx of paranoid disorder Dry eye syndrome Hypertension Surgical History History of cataract surgery H/O ovarian cystectomy History of colonoscopy History of hysterectomy [place] teeth removed Family History Son Family history of diabetes mellitus Other No family history of adverse response to anesthesia Social History Smoking Status: Never smoker Tobacco Type: Declines Second Hand Exposure: No; Do You Dip or Chew Tobacco: No; Tobacco Cessation Education Requested by Patient: No Hx Alcohol Use: Yes Alcohol type: beer, wine and hard liquor Hx Substance Use: No Preferred Language: French Communication Ability: Effective Target Network Analyst Required: No Beliefs That Will Affect Care: None Current Living Situation: Alone Other Information That Helps Us Care for You: No Feels Safe at Home: Yes Safety Concerns: Feels Safe At This Time Assistive Devices: Cane and Walker Radiation History Diagnosis: Left tibia. Solitary Plasmacytoma. Treatment: None so far. Review of Systems Review of Systems: 13 point review of systems completed. T his is negative other than what is in the history of present illness. Physical Exam Constitutional: WD/WN, vitals as above Eyes: PERRL, conjunctivae normal, anicteric sclerae ENMT: Ears: no hearing impairment Neck: trachea midline, no thyromegaly Respiratory: normal respiratory effort, lungs clear to auscultation Cardiovascular: RRR, no murmur, no edema Musculoskeletal: Immobilizer in place on the left lower extremity. Will further evaluate at CT simulation. Skin: no rashes, warm and dry Psychiatric: A+Ox3, euthymic affect Lymphatic: no cervical or axillary lymphadenopathy Results (Rad Onc) Pathology Results: were reviewed and pertinent findings noted in HPI Imaging Studies: were reviewed and pertinent findings noted in HPI Time Spent Midlevel I spent [20] minutes in preparation for this follow up evaluation including reviewing all the clinical records, reviewing laboratory studies, pathology reports and imaging results. I spent [25] minutes with direct face to face interaction with the patient and/or family including performing a physical exam and answering all questions. I spent [15] minutes documenting this patient's visit. Attending I spent 20 minutes in preparation for this consultation including reviewing all the clinical records, reviewing laboratory studies, pathology reports and imaging results. I spent 20 minutes with direct face to face interaction with the patient and/or family including performing a physical exam and answering all questions. I spent 20 minutes documenting this patient's visit. I spent 5 minutes speaking with the following providers regarding this patient's care: Dr. Freeman. PG Care Time/CCT Total # of Minutes Spent Total Time Spent with Patient: Total time spent is greater than 50% in coordination of care (as documented) at patient's floor/unit and/or counseling patient: [place] [address] IN/OBS CONSULT LVL 5,80M Patient Type New Medical Decision Making Low Complexity Diagnoses Plasma cell neoplasm D49.89
[2024-10-23 08:45] LABS: Partial Thromboplastin Time 28 Seconds (21-31); Prothrombin Time 10.5 Seconds (9.0-12.0)
[2024-10-23] MEDS: oxyCODONE HCL IR 5 MG TAB (IMMEDIATE RELEASE) PO PRN (09:01)
[2024-10-23 12:12] LABS: Bone Marrow Smear SLHOLD
[2024-10-23] MEDS: fentaNYL citrate PF 100 MCG/2 ML VIAL ONE (14:08)
[2024-10-24 06:35] LABS: Basophils # (auto) 0.02 K/uL (0.00-0.20); Basophils % (auto) 0.2 %; Eosinophils # (auto) 0.16 K/uL (0.00-0.50); Eosinophils % (auto) 1.8 %; Hematocrit (blood only) 37.2 % (37.0-47.0); Hemoglobin 12.4 g/dl (12.0-16.0); Immature Granulocytes # (auto) 0.03 K/uL (0.01-0.20); Immature Granulocytes % (auto) 0.3 %; Lymphocytes # (auto) 2.17 K/uL (1.20-3.40); Lymphocytes % (auto) 24.9 %; Mean Corpuscular Hemoglobin 30.5 pg (25.0-34.0); Mean Corpuscular Hgb Conc 33.3 g/dL (32.0-36.0); Mean Corpuscular Volume 91.4 fL (80.0-100.0); Mean Platelet Volume 9.8 fL (9.4-12.4); Monocytes # (auto) 0.89 K/uL (0.11-0.59); Monocytes % (auto) 10.2 %; Neutrophils # (auto) 5.45 K/uL (1.40-6.50); Neutrophils % (auto) 62.6 %; Platelet Count 346 K/uL (130-400); RDW Coefficient of Variation 13.6 % (11.5-14.5); RDW Standard Deviation 46.1 fL (36.4-46.3); Red Blood Count 4.07 M/uL (4.20-5.40); White Blood Count 8.72 K/ul (4.8-10.8)
[2024-10-24 07:03] LABS: BUN Creatinine Ratio 21.7 (10-20); Calcium 8.1 mg/dl (8.6-10.3); Creatinine Clr Calc Pharmacy 70.6 ml/min; Potassium 4.2 mmol/L (3.5-5.1)
--- NOTE | 2024-10-24 07:47 | Hospitalist Progress Note ---
Date of Service October 24, 2024 Assessment & Plan (1) Plasma cell neoplasm: (2) Ambulatory dysfunction: (3) Essential hypertension: Plan Pt is an 84 yo female with a past med hx of HTN, peripheral vascular disease, osteopenia, carotid artery stenosis, hearing loss and depression who presents on 10/20 for direct admission from [facility] [place] for further care of recent dx of plasmacytoma. #Plasmacytoma - transferred to [facility] 10/13-10/20 for eval of L leg bone lesion, biopsied and found to be plasma cell neoplasm - pt transferred back to [place] as she lives locally and would like to continue her care here near family - Oncology on board: Multiple myeloma less likely due to normal Cr and Hgb. Plan for Bone Marrow Biopsy Tomorrow. Will plan PET on DC. Lab results pending for SPEP with MAURA, serum free light chains or quantitative immunoglobulin. Appreciate radiation oncology consult . According to radiation oncology,plan to start radiation therapy when bone marrow biopsy completed. - Tylenol daron for pain with oxycodone prn #Ambulatory dysfunction - 2/2 L leg lesion: hard to bear weight - Evaluated by PT/OT on 10/22: Patient would benefit from rehab placement before going to home Other - HTN: continue home olmesartan 5mg (or formulary equivalent) - Anxiety : hydroxyzine 25 mg prn (same as what she was getting in [place]) VTE: lovenox Code status: FUll Dispo: PT/OT recommended rehab before going to home. Admission and Anticipated Discharge Date Admission Date: October 20, 2024 Supervising Physician Co-Signing Physician Notes Attending attestation Pt seen and examined in concert with Dr. Poe. In agreement with the documented findings as noted in the resident documentation with any exceptions or additions as noted here. Well controlled pain of the LLE with exacerbation with position/movement. On examination, S1/S2 nl RRR no MCG. CTAB. Abd NT/ND BS+ve Plasmacytoma of the LLE - oncology, rad-onc consult - pending biopsy with anesthesia tomorrow following anesthesia c/s today. Continue pain control with APAP, oxycodone. Follow up send-out labs. Coordinate course of care w/ oncology Ambulatory dysfunction in the setting of above - PT/OT - recommended rehab services. Case management aware. Else see resident documentation as noted. Subjective She mentions she slept well overnight. 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 She reports her pain is manageable with pain medications she is getting right now. Review of Systems Review of Systems: As per HPI Physical Exam Constitutional: WD/WN, vitals as above Eyes: PERRL, conjunctivae normal, anicteric sclerae ENMT: Ears: no hearing impairment Neck: trachea midline, no thyromegaly Respiratory: normal respiratory effort, lungs clear to auscultation Cardiovascular: RRR, no murmur, no edema Skin: no rashes, warm and dry Psychiatric: A+Ox3, euthymic affect Lymphatic: no cervical or axillary lymphadenopathy Results & Data Results & Data Vital Signs (Past 12 Hours) Vital Signs Temp Pulse Resp BP Pulse Ox O2 Del Method 10/24/24 07:43 36.5 C 61 16 137/65 95 Room Air 10/23/24 21:50 Room Air
[2024-10-24 18:32] LABS: Albumin 3.1 g/dL (3.8-4.8); Alpha 1 Globulin 0.4 g/dL (0.2-0.3); Alpha 2 Globulin 0.8 g/dL (0.5-0.9); Beta-1-Globulin 0.5 g/dL (0.4-0.6); Beta-2-Globulin 0.6 g/dL (0.2-0.5); Free Kappa 29.2 mg/L (3.3-19.4); Free Kappa/Lambda Ratio 0.08 (0.26-1.65); Free Lambda 363.2 mg/L (5.7-26.3); Gamma Globulin 0.6 g/dL (0.8-1.7); Monoclonal Protein Band 2 DNR g/dL (NONE DETECTED); Monoclonal Protein Band 3 DNR g/dL (NONE DETECTED); Total Protein 5.9 g/dL (6.1-8.1)
[2024-10-25] MEDS: hydrOXYzine HCl 25 MG TAB PO PRN (03:02)
[2024-10-25 07:21] LABS: Basophils # (auto) 0.05 K/uL (0.00-0.20); Basophils % (auto) 0.6 %; Eosinophils # (auto) 0.13 K/uL (0.00-0.50); Eosinophils % (auto) 1.5 %; Hematocrit (blood only) 40.4 % (37.0-47.0); Immature Granulocytes # (auto) 0.04 K/uL (0.01-0.20); Immature Granulocytes % (auto) 0.5 %; Lymphocytes # (auto) 2.52 K/uL (1.20-3.40); Lymphocytes % (auto) 29.2 %; Mean Corpuscular Hemoglobin 29.4 pg (25.0-34.0); Mean Corpuscular Hgb Conc 32.2 g/dL (32.0-36.0); Mean Corpuscular Volume 91.4 fL (80.0-100.0); Mean Platelet Volume 9.5 fL (9.4-12.4); Monocytes # (auto) 0.78 K/uL (0.11-0.59); Neutrophils # (auto) 5.12 K/uL (1.40-6.50); Neutrophils % (auto) 59.2 %; Platelet Count 367 K/uL (130-400); RDW Coefficient of Variation 13.8 % (11.5-14.5); RDW Standard Deviation 47.2 fL (36.4-46.3); Red Blood Count 4.42 M/uL (4.20-5.40); White Blood Count 8.64 K/ul (4.8-10.8)
--- NOTE | 2024-10-25 07:42 | Hospitalist Progress Note ---
Date of Service October 25, 2024 Assessment & Plan (1) Plasma cell neoplasm: (2) Ambulatory dysfunction: (3) Essential hypertension: Plan Pt is an 84 yo female with a past med hx of HTN, peripheral vascular disease, osteopenia, carotid artery stenosis, hearing loss and depression who presents on 10/20 for direct admission from [facility] for further care of recent dx of plasmacytoma. #Plasmacytoma - transferred to [facility] 10/13-10/20 for eval of L leg bone lesion, biopsied and found to be plasma cell neoplasm - pt transferred back to [place] as she lives locally and would like to continue her care here near family - Oncology on board: Multiple myeloma less likely due to normal Cr and Hgb. Plan for Bone Marrow biopsy tomorrow . NPO overnight Will plan PET on [place]. Lab results pending for SPEP with MAURA, serum free light chains or quantitative immunoglobulin. Appreciate radiation oncology consult . According to radiation oncology,plan to start radiation therapy when bone marrow biopsy completed. - Tylenol daron for pain with oxycodone prn #Ambulatory dysfunction - 2/2 L leg lesion: hard to bear weight - Evaluated by PT/OT on 10/22: Patient would benefit from rehab placement before going to home Other - HTN: continue home olmesartan 5mg (or formulary equivalent) - Anxiety : hydroxyzine 25 mg prn (same as what she was getting in [employer]) VTE: lovenox Code status: FUll Dispo: PT/OT recommended rehab before going to home. Admission and Anticipated Discharge Date Admission Date: October 20, 2024 Supervising Physician Co-Signing Physician Notes Attending attestation Pt seen and examined in concert with Dr. Poe. In agreement with the documented findings as noted in the resident documentation with any exceptions or additions as noted here. Well controlled pain of the LLE with exacerbation with position/movement. On examination, S1/S2 nl RRR no MCG. CTAB. Abd NT/ND BS+ve Plasmacytoma of the LLE - oncology, rad-onc consult - pending biopsy with anesthesia tomorrow. Continue pain control with APAP, oxycodone. Follow up send- out labs. Coordinate course of care w/ oncology. Radiation therapy today at 1500 Ambulatory dysfunction in the setting of above - PT/OT - recommended rehab services. Case management aware. Else see resident documentation as noted. Subjective She mentions she slept well overnight. 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 She reports her pain is manageable with pain medications she is getting right now. Review of Systems Review of Systems: As per HPI Physical Exam Constitutional: WD/WN, vitals as above Eyes: PERRL, conjunctivae normal, anicteric sclerae ENMT: Ears: no hearing impairment Neck: trachea midline, no thyromegaly Respiratory: normal respiratory effort, lungs clear to auscultation Cardiovascular: RRR, no murmur, no edema Skin: no rashes, warm and dry Psychiatric: A+Ox3, euthymic affect Lymphatic: no cervical or axillary lymphadenopathy Results & Data Results & Data Vital Signs (Past 12 Hours) Vital Signs Temp Pulse Resp BP Pulse Ox O2 Del Method 10/24/24 20:37 Room Air 10/24/24 20:19 36.7 C 65 16 133/76 94 Room Air
[2024-10-25 07:59] LABS: Albumin Level 3.4 gm/dl (3.4-5.0); Bilirubin,Total 0.4 mg/dl (0.2-1.0); Calcium 8.5 mg/dl (8.6-10.3); Potassium 4.5 mmol/L (3.5-5.1)
[2024-10-25 08:05] LABS: Albumin Globulin Ratio 1.1 (0.9-2); BUN Creatinine Ratio 21.4 (10-20); Creatinine Clr Calc Pharmacy 75.7 ml/min; Globulin 3.1 gm/dl (2.5-4.0); Total Protein 6.5 gm/dl (6.0-8.3)
[2024-10-26 06:27] LABS: Basophils # (auto) 0.03 K/uL (0.00-0.20); Basophils % (auto) 0.4 %; Eosinophils # (auto) 0.15 K/uL (0.00-0.50); Eosinophils % (auto) 1.8 %; Hematocrit (blood only) 38.9 % (37.0-47.0); Hemoglobin 12.9 g/dl (12.0-16.0); Immature Granulocytes # (auto) 0.02 K/uL (0.01-0.20); Immature Granulocytes % (auto) 0.2 %; Lymphocytes # (auto) 2.52 K/uL (1.20-3.40); Lymphocytes % (auto) 30.8 %; Mean Corpuscular Hemoglobin 30.5 pg (25.0-34.0); Mean Corpuscular Hgb Conc 33.2 g/dL (32.0-36.0); Mean Platelet Volume 9.9 fL (9.4-12.4); Monocytes # (auto) 0.77 K/uL (0.11-0.59); Monocytes % (auto) 9.4 %; Neutrophils # (auto) 4.68 K/uL (1.40-6.50); Neutrophils % (auto) 57.4 %; Platelet Count 385 K/uL (130-400); RDW Coefficient of Variation 13.7 % (11.5-14.5); RDW Standard Deviation 46.2 fL (36.4-46.3); Red Blood Count 4.23 M/uL (4.20-5.40); White Blood Count 8.17 K/ul (4.8-10.8)
--- NOTE | 2024-10-26 06:55 | Hospitalist Progress Note ---
Date of Service October 26, 2024 Assessment & Plan (1) Plasma cell neoplasm: (2) Ambulatory dysfunction: (3) Essential hypertension: Plan Pt is an 84 yo female with a past med hx of HTN, peripheral vascular disease, osteopenia, carotid artery stenosis, hearing loss and depression who presents on 10/20 for direct admission from [facility] [place] for further care of recent dx of plasmacytoma. #Plasmacytoma - transferred to [facility] [place] 10/13-10/20 for eval of L leg bone lesion, biopsied and found to be plasma cell neoplasm - pt transferred back to [place] as she lives locally and would like to continue her care here near [facility] - Medical Oncology and Radiation Oncology on board. -Will plan PET on DC. -Bone Marrow Biopsy performed today. - Tylenol daron for pain with oxycodone prn #Ambulatory dysfunction - 2/2 L leg lesion: hard to bear weight - Evaluated by PT/OT on 10/22: Patient would benefit from rehab placement before going to home. Plan to discharge her to rehab Other - HTN: continue home olmesartan 5mg - Anxiety : hydroxyzine 25 mg prn VTE: lovenox Code status: FUll Dispo: PT/OT recommended rehab before going to home. Admission and Anticipated Discharge Date Admission Date: October 20, 2024 Supervising Physician Co-Signing Physician Notes Attending attestation Pt seen and examined in concert with Dr. Poe. In agreement with the documented findings as noted in the resident documentation with any exceptions or additions as noted here. Well controlled pain of the LLE with exacerbation with position/movement. On examination, S1/S2 nl RRR no MCG. CTAB. Abd NT/ND BS+ve Plasmacytoma of the LLE - oncology, rad-onc consult - s/p bone marrow bx. Continue pain control with APAP, oxycodone. Follow up send-out labs. Coordinate course of care w/ oncology. Ongoing f/u for radiation therapy Ambulatory dysfunction in the setting of above - PT/OT - recommended rehab services. Case management aware. Else see resident documentation as noted. Subjective Doing well post Biospy. Denies bleeding, excessive pain or any other symptoms. Review of Systems Review of Systems: As per HPI Physical Exam Constitutional: WD/WN, vitals as above Eyes: PERRL, conjunctivae normal, anicteric sclerae ENMT: Ears: no hearing impairment Neck: trachea midline, no thyromegaly Respiratory: normal respiratory effort, lungs clear to auscultation Cardiovascular: RRR, no murmur, no edema Skin: no rashes, warm and dry Psychiatric: A+Ox3, euthymic affect Lymphatic: no cervical or axillary lymphadenopathy Results & Data Results & Data Vital Signs (Past 12 Hours) Vital Signs Temp Pulse Resp BP Pulse Ox O2 Del Method 10/25/24 20:22 Room Air 10/25/24 19:58 36.4 C L 63 16 128/75 95 Room Air
[2024-10-26 07:13] LABS: Albumin Level 3.3 gm/dl (3.4-5.0); Bilirubin,Total 0.4 mg/dl (0.2-1.0); Calcium 8.5 mg/dl (8.6-10.3); Potassium 4.5 mmol/L (3.5-5.1)
[2024-10-26 07:19] LABS: Albumin Globulin Ratio 1.1 (0.9-2); BUN Creatinine Ratio 24.2 (10-20); Creatinine Clr Calc Pharmacy 68.4 ml/min; Globulin 2.9 gm/dl (2.5-4.0); Total Protein 6.2 gm/dl (6.0-8.3)
[2024-10-26 07:50] LABS: Bone Marrow Smear SLHOLD
[2024-10-26] MEDS ORDERED: PROPOFOL IV EMULSION 10 MG/ML 20 ML VIAL IV ONE (08:12)
[2024-10-26] MEDS ORDERED: LIDOCAINE 2% 2 ML VIAL/AMP(20MG/ML) INFIL ONE (08:12)
[2024-10-26] MEDS ORDERED: fentaNYL citrate PF 100 MCG/2 ML VIAL ONE (08:13)
[2024-10-26] MEDS ORDERED: MIDAZOLAM HCL 1 MG/ML 2ML VIAL ONE (08:13)
--- NOTE | 2024-10-26 09:26 | Anesthesiology Consultation ---
Date of Service October 26, 2024 Assessment & Plan (1) Encounter for pre-operative examination: Chart Review Chart Review: Acceptable Risk for Surgery History Surgery Operation Date: 10/26/24 08:[address] Scan Bone Marrow Biopsy with Anesthesia Sedation - GABRIELLE Verdin Height/Weight Height: 5 ft 2 in Weight: 85.1 kg Allergies Allergy/AdvReac Type Severity Reaction Status Date / Time tetracycline AdvReac Severe Intestinal Verified 10/13/24 10:49 bleeding Medications Home Medications Medication Instructions Recorded Confirmed Last Taken calcium 500 mg (as 1 tab PO BID 10/20/21 10/20/24 10/12/24 carbonate)-vitamin D3 3.125 mcg (125 unit) tablet olmesartan 5 mg tablet 5 mg PO BID 06/15/24 10/20/24 10/12/24 acetaminophen 500 mg tablet 1,000 mg PO TID PRN pain 10/13/24 10/20/24 10/13/24 03:00 (Tylenol Extra Strength) omega 3 350 mg-dha 235 mg-epa 90 1 cap PO QAM 10/13/24 10/20/24 10/12/24 mg-fish oil 597 mg capsule,delay rel ([place]-3) aspirin 81 mg tablet 81 mg PO DAILY 10/20/24 10/20/24 Unknown cholecalciferol (vitamin D3) See Rx Instructions .Route .COMPLEX 10/20/24 10/20/24 Unknown Active Medications Generic Name Dose Route Start Last Admin Trade Name Freq PRN Reason Stop Dose Admin Acetaminophen 1,000 mg 10/20/24 23:00 10/26/24 06:00 Acetaminophen 500 Mg Tab PO 11/19/24 22:59 1,000 mg Q8H MIKE Administration Enoxaparin Sodium 40 mg 10/20/24 23:00 10/25/24 22:57 Enoxaparin Inj 40 Mg/0.4 Ml Syr SQ 11/19/24 22:59 40 mg Q24H MIKE Administration Hydroxyzine HCl 25 mg 10/20/24 22:54 10/25/24 03:02 Hydroxyzine Hcl 25 Mg Tab PO 11/19/24 22:53 25 mg Q6H PRN Administration Anxiety/Insomnia Losartan Potassium 12.5 mg 10/21/24 09:00 10/25/24 09:24 Losartan Potassium 25 Mg Tab PO 11/20/24 08:59 12.5 mg QAM MIKE Administration Oxycodone HCl 2.5 mg 10/20/24 22:54 10/25/24 16:34 Oxycodone Hcl Ir 5 Mg Tab (Immediate Release) PO 11/03/24 22:53 2.5 mg Q4H PRN Administration Pain Oxycodone HCl 5 mg 10/20/24 22:54 10/24/24 11:55 Oxycodone Hcl Ir 5 Mg Tab (Immediate Release) PO 11/03/24 22:53 5 mg Q4H PRN Administration Pain Polyethylene Glycol 17 gm 10/22/24 14:00 10/26/24 07:01 Polyethylene (Miralax) 17 Gm Pack PO 11/21/24 13:59 Not Given TID MIKE NPO Date Last Intake of Fluids: 10/26/24 Time Last Intake of Fluids: 06:00 Date Last Intake of Solids: 10/25/24 Time Last Intake of Solids: 21:00 Past Medical History Medical History History of shingles Remote hx History of COVID-19 2021, "mild" Encounter for pre-operative examination Bursitis Hips Arthritis History of kidney stones No surgical interventions Hx of thyroid disease No longer on meds Hx of paranoid disorder Dry eye syndrome Hypertension Past Family History Family History Son Family history of diabetes mellitus Other No family history of adverse response to anesthesia Past Surgical History Surgical History History of cataract surgery R/L H/O ovarian cystectomy History of colonoscopy History of hysterectomy [place] teeth removed Social History Smoking Status: Never smoker Do You Dip or Chew Tobacco: No Hx Alcohol Use: Yes Alcohol type: beer, wine and hard liquor alcohol intake frequency: holidays/special occasions only Hx Substance Use: No substance use type: does not use Physical Exam Vital Signs Last Vital Signs Temp 36.7 C 10/26/24 07:48 Pulse 66 10/26/24 07:48 Resp 16 10/26/24 07:48 BP 157/86 H 10/26/24 07:48 Pulse Ox 94 10/26/24 07:48 O2 Del Method Room Air 10/26/24 07:48 Testing Laboratory Results 10/26/24 05:19 10/26/24 05:19 PT 10.5 Seconds (9.0-12.0) 10/23/24 07:43 INR 1.0 (0.9-1.1) 10/23/24 07:43 APTT 28 Seconds (21-31) 10/23/24 07:43
[2024-10-26] MEDS ORDERED: fentaNYL citrate PF 100 MCG/2 ML VIAL IV PRN (09:27)
[2024-10-26] MEDS ORDERED: ONDANSETRON INJ 2 MG/ML 2 ML VIAL IV PRN (09:27)
[2024-10-26] MEDS ORDERED: ATROPINE SULFATE 0.1 MG/ML 10ML SYR IV PRN (09:27)
--- NOTE | 2024-10-26 09:58 | Anesthesiology Progress Note ---
Date of Service October 26, 2024 Anesthesia Post Procedure Vital Signs Vital Signs: Temp Pulse Pulse Resp BP BP Pulse Ox 10/26/24 09:40 61 12 117/65 99 10/26/24 09:34 36.7 C 62 18 125/61 93 10/26/24 07:48 36.7 C 66 16 157/86 H 94 10/26/24 07:29 36.5 C 58 L 16 135/75 94 10/25/24 20:22 10/25/24 19:58 36.4 C L 63 16 128/75 95 10/25/24 12:02 36.6 C 62 16 148/82 H 94 O2 Del Method O2 Flow Rate 10/26/24 09:40 Nasal Cannula 2 10/26/24 09:34 Nasal Cannula 2 10/26/24 07:48 Room Air 10/26/24 07:29 Room Air 10/25/24 20:22 Room Air 10/25/24 19:58 Room Air 10/25/24 12:02 Room Air Pain Intensity Left Leg: Pain Intensity: 4 Left Knee: Pain Intensity: 2 Transfer of Care Handoff Completed per policy Notes Mental Status: alert / awake / arousable Patient Amnestic to Procedure: Yes Nausea / Vomiting: adequately controlled Pain: adequately controlled Airway Patency, RR, SpO2: stable & adequate BP & HR: stable & adequate Hydration State: stable & adequate Anesthetic Complications: no major complications apparent
[2024-10-26 11:18] VITALS: RESP 16
--- NOTE | 2024-10-26 13:36 | CT Scan Report ---
CT guided bone marrow biopsy INDICATION: Plasmacytoma PROCEDURE: Procedure and risks were explained. Informed consent was obtained. A final timeout was com pleted. The patient was placed in a right decubitus position on the CT exam table. The left gluteal r egion was prepped and draped in sterile fashion. 1% lidocaine was utilized for skin anesthesia. The p atient received monitored anesthesia care with 1 g Tylenol IV. Utilizing CT guidance, an 11-gauge bone biopsy needle was advanced into the left iliac bone. Multiple aspirates and one bone core was obtained and given to the lab. The needle was removed and Band-Aid a pplied. The patient tolerated the procedure well. Vital signs will be monitored postprocedure. IMPRESSION: Bone marrow biopsy as above. Performed, dictated, and signed by Freddie Shankar PA-C; to be co-signed by Dr. Grzegorz Woody. Electronically signed by: Grzegorz Woody M.D. 10/26/2024 1:55 PM
[2024-10-26 19:43] VITALS: TEMP 97.9
[2024-10-26] MEDS: MELATONIN 3 MG TAB PO PRN (21:29)
[2024-10-27 07:10] VITALS: BP 155/65; PULSE 65; O2SAT 94
--- NOTE | 2024-10-27 07:29 | Hospitalist Progress Note ---
Date of Service October 27, 2024 Assessment & Plan (1) Plasma cell neoplasm: (2) Ambulatory dysfunction: (3) Essential hypertension: Plan Pt is an 84 yo female with a past med hx of HTN, peripheral vascular disease, osteopenia, carotid artery stenosis, hearing loss and depression who presents on 10/20 for direct admission from [facility] [place] for further care of recent dx of plasmacytoma. #Plasmacytoma - transferred to [facility] [place] 10/13-10/20 for eval of L leg bone lesion, biopsied and found to be plasma cell neoplasm - pt transferred back to [place] as she lives locally and would like to continue her care here near [facility] - Medical Oncology and Radiation Oncology on board. -Will plan PET on DC. -Bone Marrow Biopsy performed today. - Tylenol daron for pain with oxycodone prn #Ambulatory dysfunction - 2/2 L leg lesion: hard to bear weight - Evaluated by PT/OT on 10/22: Patient would benefit from rehab placement before going to home. Plan to discharge her to rehab Other - HTN: continue home olmesartan 5mg - Anxiety : hydroxyzine 25 mg prn VTE: lovenox Code status: FUll Dispo: PT/OT recommended rehab before going to home. Admission and Anticipated Discharge Date Admission Date: October 20, 2024 Supervising Physician Co-Signing Physician Notes Attending attestation Pt seen and examined in concert with Dr. Poe. In agreement with the documented findings as noted in the resident documentation with any exceptions or additions as noted here. Well controlled pain of the LLE with exacerbation with position/movement. On examination, S1/S2 nl RRR no MCG. CTAB. Abd NT/ND BS+ve Plasmacytoma of the LLE - oncology, rad-onc consult - s/p bone marrow bx. Continue pain control with APAP, oxycodone. Follow up send-out labs. Coordinate course of care w/ oncology. Ongoing f/u for radiation therapy Ambulatory dysfunction in the setting of above - PT/OT - recommended rehab services. Case management aware. Else see resident documentation as noted. Subjective Doing well post Biospy. Denies bleeding, excessive pain or any other symptoms. Review of Systems Review of Systems: As per HPI Physical Exam Constitutional: WD/WN, vitals as above Eyes: PERRL, conjunctivae normal, anicteric sclerae ENMT: Ears: no hearing impairment Neck: trachea midline, no thyromegaly Respiratory: normal respiratory effort, lungs clear to auscultation Cardiovascular: RRR, no murmur, no edema Skin: no rashes, warm and dry Psychiatric: A+Ox3, euthymic affect Lymphatic: no cervical or axillary lymphadenopathy Results & Data Results & Data Vital Signs (Past 12 Hours) Vital Signs Temp Pulse Resp BP Pulse Ox O2 Del Method 10/27/24 07:08 36.6 C 65 16 155/65 H 94 Room Air 10/26/24 19:42 36.6 C 66 16 119/72 95 Room Air
[2024-10-27] MEDS: DOCUSATE SODIUM 100 MG CAP PO PRN (09:00)
--- NOTE | 2024-10-27 14:07 | Discharge Summary ---
Date of Service October 27, 2024 Admission HPI Per Admitting Provider Pt is an 84 yo female with a past med hx of HTN, peripheral vascular disease, osteopenia, carotid artery stenosis, hearing loss and depression who presents on 10/20 for direct [place] [facility] of recent dx of plasmacytoma. Pt seen at bedside. She states she is feeling well. She denies chest pain, SOB, nausea, vomiting, abdominal pain. She states that her only source of pain is her L leg where the cancer is and states it is excruciating to walk on or bear any weight on. She ate dinner prior to arrival here without issue. She states she was getting tylenol and oxycodone for pain which did work well for her. No questions or concerns at this time. Admission Exam Per Admitting Provider PHYSICAL EXAMINATION: GENERAL: Sitting up in bed, alert, well appearing, well nourished, no distress, non-toxic EYE EXAM: normal conjunctiva. PERRL and EOM's grossly intact. OROPHARYNX: mucous membranes are moist LUNGS: Clear to auscultation. Normal chest wall mechanics HEART: no murmurs, S1 normal and S2 normal ABDOMEN: abdomen soft, non-tender, normo-active bowel sounds, no masses, no rebound or guarding. BACK: Back is symmetrical on inspection and there is no deformity, no midline tenderness, no CVA tenderness. UPPER EXTREMITIES: upper extremities are grossly normal. LOWER EXTREMITIES: Flexion extension left hip knee and ankle is intact. DP 2 out of 4. Significant pain with minimal flexion of the left knee. Skin is not erythematous warm. No significant pain with axial loading. NEURO EXAM: Normal sensorium, cranial nerves II-XII grossly intact, normal speech, no gross weakness of arms, no gross weakness of legs. Principal Diagnosis 1. Plasmacytoma Discharge Exam Constitutional WD/WN, vitals as above Eyes PERRL, conjunctivae normal, anicteric sclerae ENMT Ears: no hearing impairment Neck trachea midline, no thyromegaly Respiratory normal respiratory effort, lungs clear to auscultation Cardiovascular RRR, no murmur, no edema Skin no rashes, warm and dry Psychiatric A+Ox3, euthymic affect Lymphatic no cervical or axillary lymphadenopathy Discharge Data Allergies Allergy/AdvReac Type Severity Reaction Status Date / Time tetracycline AdvReac Severe Intestinal Verified 10/13/24 10:49 bleeding Consultations 10/20/24 22:59 Consult Hematology Routine 10/22/24 15:09 Consult Radiation Oncology Routine 10/23/24 13:45 Consult Anesthesiology Routine Procedures Performed Operation Date: 10/26/24 08:50 <No data on this case meets the specified criteria> Ordered Studies 10/23/24 08:36 CT guide rad therapy pelvis Routine 10/25/24 09:21 IR bone marrow bx & asp Routine Hospital Course (1) Plasma cell neoplasm: (2) Ambulatory dysfunction: (3) Essential hypertension: Plan Pt is an 84 yo female with a past med hx of HTN, peripheral vascular disease, osteopenia, carotid artery stenosis, hearing loss and depression who presents on 10/20 for direct admission [place] [facility] care of recent dx of plasmacytoma. #Plasmacytoma -Bone Marrow biopsy (10/26) Pending results - Radiation Oncology and Medical Oncology on board - Radiation Oncology recs- Radiation therapy daily for 5 weeks -Medical Oncology recs: Whole body PET scan on outpatient. Med Oncology team working on scheduling patient. -Discharge today to [facility] for further care. Pain meds: Tylenol and Oxycodone pRN -Follow up with PCP within a week and medical oncology #Ambulatory dysfunction -2/2 to plasmacytoma on her left tibia -Discharge her to rehab today #Chronic condition - HTN: continue home olmesartan 5mg - Anxiety : hydroxyzine 25 mg prn Total Time Total Time Spent Total Time Spent (In Minutes): See attending attestation Discharge Plan Discharge Items Patient Disposition: Transfer Inpatient Rehab Fac Reason For Visit: MYELOMA Discharge Diagnosis: 1. Plasmacytoma Activity: Per Instructions section Non-emergency contact: Primary Care Provider Call non-emergency contact if: you have any medication questions, your symptoms worsen and your pain is concerning for you Follow-up/Referrals: James Hope [Primary Care Provider] - Diet: Regular Addtl Attending Provider Instructions: You were admitted to the hospital for Plasmacytoma. You were managed with pain medication and Radiation Therapy while at hospital. We had your Bone Marrow Biopsy. As recommended by Radiation Oncology team, you will continue radiation therapy daily A discharge summary will be sent to your primary care physician to ensure continuity of care. Please bring this discharge summary with you to your next office appointment so that your provider can review it at that time. Follow-up appointments: Make a follow-up appointment with your PCP within the next week. It is very important that you follow up with them shortly after discharge from the hospital.] We have requested Medical Oncology team for PET Scan of whole body. You will be soon hearing from them about your schedule Keep all your follow-up appointments as already scheduled. If you cannot make an appointment, notify your provider. Medications: Your medication list has been reviewed and reconciled upon discharge to ensure accuracy and continuity of care. An updated list of all your medications is included with your hospital discharge paperwork. Please review this list closely, and make note of any changes. We sent a new medication called Hydroxyzine your pharmacy. Take Hydroxyzine as needed for sleep We sent a new medication called Oxycodone to your pharmacy. Take Oxycodone 5 mg two times a day as needed for pain If you have any issues filling these prescriptions, please call [phone] and ask to leave a message for Dr. Wade Poe Take your medications as instructed; do not skip a dose of your medicines. Make sure all of your doctors know every medicine you are taking (including [id number] medicines, vitamins, and supplements). Call your primary care provider before taking any new medicines (including overthe- counter medicines, vitamins, and supplements), because some of these may interact with your current medications, or may make your symptoms worse. Tell your primary care provider if you cannot afford your medications. CONTACT YOUR PRIMARY CARE PROVIDER if you experience any of the following: Increase in pain or worsening of your symptoms Difficulty following your treatment plan, or difficulty taking medications CALL 911 OR GO TO THE EMERGENCY DEPARTMENT if you experience any of the follo wing: Sudden, severe abdominal pain or nausea/vomiting Severe chest pain, or chest pain that radiates (moves) to your jaw or arm Sudden, severe shortness of breath or difficulty breathing Thank you for allowing us to participate in your care. . Pending Studies at Discharge: Yes Stand-Alone Forms: [facility] [employer] Skilled Items Patient informed of condition?: Yes DNR: No Discharge Level of Care: Skilled Communicable Disease: No Discharge Prognosis: Stable Lines: None Urinary Catheter: No Medications and DC Order Prescriptions: New melatonin 3 mg Tablet 3 mg PO HS PRN (Reason: sleep) 30 Days Qty: 30 0RF hydroxyzine HCl 25 mg Tablet 25 mg PO Q6H PRN (Reason: sleep) 10 Days Qty: 10 0RF oxycodone 5 mg tablet 5 mg PO BID PRN (Reason: pain) 14 Days Qty: 30 0RF Continued olmesartan 5 mg tablet 5 mg PO BID calcium carbonate-vitamin D3 500 mg-3.125 mcg (125 unit) Tablet 1 tab PO BID cholecalciferol (vitamin D3) See Rx Instructions .ROUTE .COMPLEX Rx Instructions: 2000 international units po daily Turner-3 350 mg-235 mg- 90 mg-597 mg Capsule,Delayed Release(Dr/Ec) 1 cap PO QAM acetaminophen [Tylenol Extra Strength] 500 mg tablet 1,000 mg PO TID PRN (Reason: pain) Rx Instructions: Take 3 times per day to lessen pain. Discontinued Adult Low Dose Aspirin 81 mg Tablet 81 mg PO DAILY Discharge Orders: Discharge Order (Routine); Ordered 10/27/24 Ordered By: Wade Poe Admission Data Admit Date/Time: 10/20/24 22:01 Attending Provider: Ravindra Schultz Admit Provider: Tariq Johnson Primary Care Provider: James Hope Other Providers: Leslie Mendosa; Magy Lucio; James Krause; Anali Diaz; Liz Shelley; Zach Ortega; Soledad Freeman,Diamond Attending; Adina Bridges; Cipriano Marley; Melvi Cruz at [place] Other Interventions: Discharge Summary Assessment (RN) Last Done: 10/27/24 11:21 Supervising Physician Co-Signing Physician Notes Attending attestation Pt seen and examined in concert with Dr. Poe. In agreement with the documented findings as noted in the resident documentation with any exceptions or additions as noted here. Well controlled pain of the LLE with exacerbation with position/movement. On examination, S1/S2 nl RRR no MCG. CTAB. Abd NT/ND BS+ve Plasmacytoma of the LLE - oncology, rad-onc consult - s/p bone marrow bx. Tolerating pain w/ oxycodone 5mg used BID PRN, discharge w/ same. Upon discharge will coordinate course of care w/ oncology, rad/onc and primary care. Ambulatory dysfunction in the setting of above - PT/OT - engaged with rehab services. Else see resident documentation as noted. Total attending physician time spent with this patient's care on the day of discharge: 35 minutes. Resident Activity Tracking Resident Involvement: Resident Care Provided Care Provided: [facility]
== END 2024-10-27 14:31 | DRG 842 ==
LOC: 3E 22:01 → SUATTDRO 22:01